=== PATIENT | female | born 1955 | race Caucasian/White ===

== ENCOUNTER 2017-06-08 05:35 | Observation (INO) | payer OTHER ==
[~2017-06-08] VITALS: Ht 160 cm; Wt 111.6 kg
[~2017-06-08 05:35] MED LIST: ADULT LOW DOSE81 MG PO; ADVAIR 100-501 EACH INH; ALDACTONE25 MG PO; ANASTROZOLE1 MG PO; BISOPROLOL-HCT1 EAC2 PO; CENTRUM SILVER1 EAC3 PO; CRANBERRY200 MG PO; EFFER-K 10 MEQ10 MEQ PO; ELIQUIS2.5 MG PO; ESTRACE1 MG PO; FLONASE ALLERG9.9 ML NAS; FOLIC ACID1 MG PO; GLUCOPHAGE1000 MG PO; HUMIRA CRO40 MG/0.8 SUB-Q; HYDROXYCHLOROQ200 MG PO; IBUPROFEN600 MG PO; IRON18 MG PO; LASIX40 MG PO; LIPITOR20 MG PO; MAPAP325 MG PO; METHOTREXATE2.5 MG PO; OMEPRAZOLE20 M1 PO; OXYCODON-ACETA1 EAC2 PO; PLAQUENIL200 MG PO; PROAIR RESPICL90 MCG INH; SINGULAIR10 MG PO; TIAZAC300 MG PO; TIROSINT88 MCG PO; VITAMIN D400 UNI1 PO; ZYRTEC10 MG PO
--- NOTE | 2017-06-08 10:28 | NUR ---
06/08/17 1028 Iliana Valdivia REPORT FROM BRICK SETTER.
--- NOTE | 2017-06-08 13:09 | NUR ---
PT RESTING IN BED HER AND SISTER BY HER SIDE. SHE WAS FRIENDLY, SEEMED COMFORTABLE AND HAD FEW QUESTIONS. DID SEEM THOUGH TO BE WAITING FOR DR TOTH TO COME IN. REQUESTED PRAYER, WILL FOLLOW NEEDED
--- NOTE | 2017-06-08 13:37 | NUR ---
PT REQUESTS TO USE THE BATHROOM. ADVANCED RESEARCH PROGRAMS DIRECTOR ASSISTED. POST OP VITALS TAKEN, VSS. SENSATION INTACT, NO NUMBNESS, TINGLING, OR SWELLING REPORTED. PT BREATHING AND SWALLOWING WELL.
--- NOTE | 2017-06-08 16:34 | NUR ---
LEFT VOICEMAIL FOR DR TOTH RE: ORDER FOR PAIN RELIEF. PT STATES SHE HAS SOME DISCOMFORT, IBUPROFEN 600MG WORKS BEST FOR HER.
--- NOTE | 2017-06-08 18:15 | NUR ---
PT ARRIVED FROM SURGERY THIS MORNING. PT REPORTS NO TINGLING, NUMBNESS, SOB, OR DIFFICULTY SWALLOWING. PT REPORTS DISCOMFORT, REQUESTED ORDER FOR IBUPROFEN. PT HAS HOME CPAP IN USE. PT UP TO VOID WELL. TRACH TRAY IN ROOM.
--- NOTE | 2017-06-08 20:00 | NUR ---
RECEIVED REPORT AT 1900. FOUND PT IN BED AWAKE AND ALERT. PT DENIED PAIN, SOB AND TROUBLE SWALLOWING. PT HAD QUESTIONS ABOUT HER HOME MEDICATIONS AND I TOLD HER I WOULD CALL [facility].
--- NOTE | 2017-06-08 20:41 | OR ---
[facility] [address] [place], [place] [address] Signed DATE OF OPERATION: 06/08/2017 SURGEON: Yris Toth MD PREOPERATIVE DIAGNOSES: 1. Primary hyperparathyroidism, negative sestamibi scan, ultrasound suspicious for left upper pole of the thyroid gland. 2. History of breast carcinoma status post lumpectomy, axillary dissection, radiation therapy. 3. Recent implantation of pacemaker device. POSTOPERATIVE DIAGNOSES: 1. 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 2. Left upper pole thyroid nodule (2 cm) excised. PROCEDURE: 1. Exploration of neck for parathyroid adenoma excision. 2. Excision of portion of left upper lobe thyroid. ANESTHESIA: General endotracheal, Cristina Ponce CRNA. INDICATION: This 62-year-old white woman is a patient of Anh Gaona PA-C and lives in [place], [place]. She underwent treatment by me for right breast cancer including lumpectomy, sentinel lymph node biopsy and so on. She was found incidentally to have hypercalcemia with serum calcium greater than 11.2. A sestamibi scan was performed for localization, but did not show an adenoma. An ultrasound was performed of the neck, which showed a nodule in the posterior aspect of the left upper pole of the thyroid, likely an adenoma measuring 19 mm in maximum dimension. She is admitted at this time to undergo neck exploration in search of parathyroid adenoma as well as other indicated procedures. She understands as does her family the risks of bleeding, infection, failure to identify parathyroid adenoma, missed adenoma, recurrent laryngeal nerve injury, and other unforeseen complications. I understand that she wished to proceed. FINDINGS: She has a very short neck and is very obese. Surprisingly, she has a relatively small thyroid gland itself. There was an intrinsic nodule of the thyroid itself in the left Electronically Signed By: YRIS TOTH MD 06/08/17 2041 PATIENT NAME: ALBERTINA CASTELLANOS OPERATIVE REPORT DATE OF : 55 PHYSICIAN: YRIS TOTH MD REPORT #: [id number] REPORT IS CONFIDENTIAL AND NOT TO BE RELEASED WITHOUT AUTHORIZATION [facility] [address] [place], [place] [address] Signed upper pole, which was separately and distinctly excised. Posterior to the left upper lobe of the thyroid gland was an obvious parathyroid adenoma. This was excised completely and under frozen pathology was confirmed to be 422 mg consistent with parathyroid adenoma. Examination of the left lower pole of the thyroid gland did not show a distinct adenoma or gland that was normal per se, but no further pursuit of 2nd adenoma was undertaken at this time. DESCRIPTION OF PROCEDURE: The patient was brought to the operating room, given a general endotracheal anesthetic. A Davenport catheter was placed as well. The patient is extremely plethoric and obese. position was attempted, arms at the side and gently draped over the abdomen given her large girth. The neck was short and sarmiento and stubby. Neck extension was undertaken as best could be. A natural skin crease was noted to be midway between the angle of the mandible and sternal notch itself. Given her truncated anatomy, it was deemed most appropriate incision after all. After sterile draping and preparation, a transverse incision was made in the skin crease and dissection carried through the skin and dermis sharply and ultimately with electrocautery. Thick neck fat was transected as was the platysmal layer. Superior and inferior skin flaps were developed using blunt and electrocautery dissection. Gelpi retractors were placed in the midline, strap muscles identified and incised along the avascular plane. Elevation of the left strap muscles was undertaken and using sharp dissection, the thyroid was identified. Despite her large body habitus, her thyroid was impressively small. With blunt and sharp dissection, the loose areolar tissue lateral to the thyroid was divided. There appeared to be a nodule in the upper pole of the thyroid gland. This was clearly thyroid tissue and not an adenoma given its anterior position. It was of concern that perhaps the ultrasound that had been performed had identified this nodule rather than an adenoma. Using great care, the thyroid was dissected free and rotated to a medial position and behind the upper pole the thyroid gland was an obvious parathyroid adenoma, which was rather elongated and quite large. This was gently teased from the surrounding soft tissue with sharp dissection and blunt dissection with a suction device. Small clips applied to the vascular pedicle and the lesion was excised and passed for pathology. Photographs were taken. The subsequent frozen pathology confirmed this to be a parathyroid adenoma weighing 422 mg (normal gland 30-50 mg). Irrigation was undertaken and dissection in the lower aspect of the thyroid was undertaken while waiting for the frozen pathology report. No distinct parathyroid gland was identified. The one was considered likely was identified in the posterior aspect of the left lower pole of the thyroid gland. It was not dissected free in anyway. The nodule of the thyroid gland itself was reinspected. It was quite distinct and separate from the twenty-nine palms thyroid gland itself. Superior polar vessels were individually ligated and secured with 4-0 silk ties ultimately allowing for Zoraida clamp to be applied to the thyroid nodule, which measured about 2.5 cm. Its attachment to the left upper Electronically Signed By: YRIS TOTH MD 06/08/17 2041 PATIENT NAME: ALBERTINA CASTELLANOS OPERATIVE REPORT DATE OF : 55 PHYSICIAN: YRIS TOTH MD REPORT #: [id number] REPORT IS CONFIDENTIAL AND NOT TO BE RELEASED WITHOUT AUTHORIZATION [facility] [address] [place], [place] [address] Signed pole thyroid tissue was divided with electrocautery. The raw surface of the thyroid that remained was hemostatic. Irrigation was undertaken. There was no untoward bleeding. Holli hemostatic powder was applied to the raw surface of the left upper pole thyroid gland and somewhat posteriorly in the site of the previous excised parathyroid adenoma, though there was no ongoing bleeding in anyway. By that point, the frozen pathology had confirmed the findings. The thyroid nodule was not sent for frozen pathology at this time as it is remarkably unusual in this environment to have a definitive diagnosis of thyroid pathology. Attention was turned towards closure. The midline strap muscles were reapproximated with interrupted 2-0 Vicryl. The platysmal layer was similarly reapproximated and skin closed with running subcuticular 3-0 Vicryl. Steri-Strips were applied as was a Mepilex silver sponge dressing. The patient was ultimately extubated and transferred to recovery in good condition having suffered no complication. Sponge, needle, and instrument counts reported as correct x3. MD JAYDA Araujo/EMMANUEL /[id number] cc: KEISHA Ortega MD Cynthia Sue Holmes, MD Jeffrey M Lehr, MD Electronically Signed By: YRIS TOTH MD 06/08/17 2041 PATIENT NAME: ALBERTINA CASTELLANOS OPERATIVE REPORT DATE OF : 55 PHYSICIAN: YRIS TOTH MD REPORT #: [id number] REPORT IS CONFIDENTIAL AND NOT TO BE RELEASED WITHOUT AUTHORIZATION
--- NOTE | 2017-06-08 22:00 | NUR ---
I TALKED TO MD TOTH ABOUT HER HOME MEDICATINS. FOR NOW SHE WILL TAKE HER HOME DOSE FOR LASIX. I ALSO CHECKED HER BG SINCE THIS PT HAS DM II. IT WAS 270. I TOLD THIS TO BONI AND HE PUT INSULIN ORDERS IN. PT RECEIVED 5 UNITS OF NOVOLIN INSULIN, V/S ARE WDL, PT PAIN AT THIS TIME IS 2, NO EDEMA NOTED AROUND HER NECK, DENIES SOB AND PROBLEMS SWALLOWING, PT IS TOLERATING REGULAR DIET WELL. DIET WILL BE CHANGED TO ADA WELL. ALL LOBES ARE CLEAR AND NO PERIPHERAL EDEMA WAS NOTED.
--- NOTE | 2017-06-09 00:22 | NUR ---
IV FLUIDS WERE CHANGED. PT IS BACK TO SLEEP NOW.
--- NOTE | 2017-06-09 01:25 | NUR ---
ASSISTED PT TO BATHROOM, PT MISSED HAT IN TOILET. PER PT SHE SAID SHE HAD A LARGE VOID. NO CHANGES IN THIS PT. PT BACK IN BED. SPOT BG CHECK WAS 165.
--- NOTE | 2017-06-09 03:14 | NUR ---
PT IS SLEEPING AT THIS TIME.
--- NOTE | 2017-06-09 04:19 | NUR ---
PT IS SLEEPING AT THIS TIME.
--- NOTE | 2017-06-09 05:09 | NUR ---
OVERALL PT HAD AN UNEVENTFUL NIGHT. V/S ARE WDL. PT HAD MINIMAL PAIN, NO EDEMA AROUND THE NECK WAS NOTED, PT DENIES SOB AND DIFFICULTY SWALLOWING. BG AT 2100 WAS 270 AND MD TOTH WAS NOTIFIED AND INSULIN ORDERS WERE DONE. A SPOT CHECK WAS DONE AT AROUND 0130, BG WAS 165. DIET WAS CHANGED TO ADA. ALL LOBES ARE CLEAR NO PERIPHERAL EDEMA WAS NOTED, PT IS ALERT AND ORIENTED, PT DENIES NUMBNESS, TINGLING AND TWITCHING. URINE OUTPUT IS ADEQUATE. DRESSING ON FRONT OF NECK IS C/D/I. NO NEW ISSUES NOTED SO FAR. PT USED HER HOME C-PAP ALL NIGHT.
--- NOTE | 2017-06-09 07:37 | NUR ---
patient was asleep, family in room, will check back when breakfast comes around.
--- NOTE | 2017-06-09 08:28 | NUR ---
PT FSBS 161. 1 UNIT INSULIN TO BE GIVEN. PT UP TO BATHROOM NOW. TOLERATED BREAKFAST WELL. MEPILEX ON NECK INCISION IN PLACE. C/D/I. WORE CPAP WHILE SLEEPING. FAMILY AT BEDSIDE. REPORTS NO TINGLING, NUMBNESS, MUSCLE SPASMS OR TWITCHING. CALCIUM LEVEL 9.1 TODAY. IVF INFUSING AT 85.
[2017-06-09] MEDS ORDERED: CALCIUM CARBON200 MG PO (12:09)
--- NOTE | 2017-06-09 12:37 | NUR ---
PT HAS VISITORS AT BEDSIDE. EATING LUNCH NOW. NO COMPLAINTS OF PAIN. DISCHARGE ORDER IN CHART. IV REMOVED. CONTINUOUS PULSE OX DISCONTINUED.
== END 2017-06-09 13:15 | disposition home or self-care (01) ==
LOC: DS 05:35 → MS 11:10
PROVIDERS: ADMIT Surgery
PROC: 0GBG0ZZ Excision of Left Thyroid Gland Lobe, Open Approach (ICD-10-PCS; 2017-06-08)
PROC: 0GBM0ZZ Excision of Left Superior Parathyroid Gland, Open Approach (ICD-10-PCS; principal; 2017-06-08 06:45)
DX: D35.1 Benign neoplasm of parathyroid gland (principal); E06.3 Autoimmune thyroiditis; E04.1 Nontoxic single thyroid nodule; E03.9 Hypothyroidism, unspecified; E87.6 Hypokalemia; E21.0 Primary hyperparathyroidism; I10 Essential (primary) hypertension; J45.909 Unspecified asthma, uncomplicated; E11.9 Type 2 diabetes mellitus without complications; E66.01 Morbid (severe) obesity due to excess calories; G47.30 Sleep apnea, unspecified; M06.9 Rheumatoid arthritis, unspecified; Z95.0 Presence of cardiac pacemaker; Z85.3 Personal history of malignant neoplasm of breast; Z68.41 Body mass index [BMI] 40.0-44.9, adult; Z88.1 Allergy status to other antibiotic agents; Z88.5 Allergy status to narcotic agent; Z88.2 Allergy status to sulfonamides; Z88.8 Allergy status to other drugs, medicaments and biological substances; Z79.84 Long term (current) use of oral hypoglycemic drugs; Z79.1 Long term (current) use of non-steroidal anti-inflammatories (NSAID); Z79.02 Long term (current) use of antithrombotics/antiplatelets; Z79.82 Long term (current) use of aspirin; Z79.51 Long term (current) use of inhaled steroids; Z79.899 Other long term (current) drug therapy
CPT/HCPCS: 00300; 36415; 82310; 94640; 94644; 94762; G0378; J0330; J0690; J1100; J2250; J2405; J2704; J3010; J7120

== ENCOUNTER 2020-09-09 09:44 | Day surgery (SDC) | payer MEDICARE, OTHER ==
[~2020-09-09] VITALS: Ht 160 cm; Wt 115.0 kg
[~2020-09-09 09:44] MED LIST changes: +ASPIRIN325 MG PO; +CALCIUM CARBON200 MG PO; +FISH OIL 1,0001 EAC5 PO; +MAGNESIUM400 M1 PO; +PREDNISONE10 M1 PO; +TIROSINT100 MCG PO; -TIROSINT88 MCG PO
--- NOTE | 2020-09-09 11:07 | NUR ---
09/09/20 1107 Yumiko Gallardo 1105-PATIENT ARRIVED TO PACU ON 2L NC AWAKE RR EVEN 2L NC. ABDOMEN ROUND AND SOFT ENCOURAGED TO PASS GAS. IVF INFUSING
--- NOTE | 2020-09-13 15:54 | PATH ---
[facility] [address] [place], [place] [address] Signed SPECIMEN(S): A DESCENDING COLON POLYP SPECIMEN SOURCE: A. DESCENDING COLON POLYP CLINICAL HISTORY: History of polyps. Postop DX: Diverticulosis, polyp x1. MICROSCOPIC DESCRIPTION: Histologic sections of all submitted blocks are examined by light microscopy. These findings, together with the gross examination, support the pathologic diagnosis. FINAL PATHOLOGIC DIAGNOSIS: Colon, descending, polyp, polypectomy: - Tubular adenoma. - Negative for high-grade dysplasia or malignancy. NAL:cml:C2Nr GROSS DESCRIPTION: The specimen, labeled " Alonso Danielle, #1, and designated on the requisition "descending colon polyp," is received in formalin and consists of 1 asher soft tissue fragment(s) that measure 0.4 cm in greatest dimension. The specimen is entirely submitted in cassette (A1). FB (under the direct supervision of a pathologist) The Gross Description was prepared using a voice recognition system. The report was reviewed for accuracy; however, sound-alike word errors, addition and/or deletions may occur. If there is any question about this report, please contact Client Services. PERFORMING LABORATORY: The technical component was performed by [facility], [address] [place] [id number] (Profiling Machine Set Up Operator: Mely James MD; CLIA# [id number]). [facility], [address] [address] (CLIA# [id number]). Diagnostician: Marla Carty MD Pathologist Electronically Signed 09/13/2020 PATIENT NAME: DANIELLE CASTELLANOS PATHOLOGY DATE OF : 55 REPORT #: [id number] PHYSICIAN: CONNOR PATHOLOGY PCP: QUINTON SULTANA PAC REPORT IS CONFIDENTIAL AND NOT TO BE RELEASED WITHOUT AUTHORIZATION [address] [place], [place] [address] Signed Copies: ~ PATIENT NAME: DANIELLE CASTELLANOS PATHOLOGY DATE OF : 55 REPORT #: [id number] PHYSICIAN: CONNOR PATHOLOGY PCP: QUINTON SULTANA PAC REPORT IS CONFIDENTIAL AND NOT TO BE RELEASED WITHOUT AUTHORIZATION
--- NOTE | 2020-09-16 17:33 | OR ---
[facility] [address] [place], [place] [address] Signed DATE OF OPERATION: 09/09/2020 SURGEON: Yris Toth MD PREOPERATIVE DIAGNOSES: 1. History of tubular adenomas x3 in 2017. 2. Multiple other medical issues. POSTOPERATIVE DIAGNOSES: 1. Small polyp, left colon (excised). 2. Diverticulosis in sigmoid and left colon. PROCEDURES: Total colonoscopy to cecum with cold morcellation polypectomy x1. ANESTHESIA: Intravenous sedation, fentanyl 100 mcg and Versed 9 mg total INDICATIONS: This 65-year-old white woman is a patient of ABIMAEL Ortega and well known to me from the past. She has history of polyps excised in 2017, 3 in total, all of them tubular adenomas. She additionally has undergone right breast cancer surgery by me a number of years ago as well as left-sided parathyroid adenoma excision. She has no symptoms currently of bleeding or constipation, but does have diarrhea. She has no family history of colon cancer. She is admitted to undergo surveillance colonoscopy. She understands the risks of bleeding, infection, and perforation. FINDINGS: The prep was excellent. Complete colonoscopy was undertaken to the cecum without question. She had numerous diverticula of sigmoid and left colon. There was a small adenomatous appearing polyp of the left colon, which was excised with cold morcellation technique. There were no other findings of concern. DESCRIPTION OF PROCEDURE: The patient was brought to the endoscopy suite and placed in lateral decubitus position, given intravenous sedation to the point of slurred speech and nystagmus. Digital rectal examination was normal. An Olympus video colonoscope was passed in the rectum and manipulated throughout the colon noting numerous diverticula of the sigmoid and left colon. The scope was Electronically Signed By: YRIS TOTH MD 09/16/20 1733 PATIENT NAME: ALBERTINA CASTELLANOS OPERATIVE REPORT DATE OF : 55 REPORT #: [id number] PHYSICIAN: YRIS TOTH MD PCP: QUINTON GAONA PAC REPORT IS CONFIDENTIAL AND NOT TO BE RELEASED WITHOUT AUTHORIZATION [facility] [address] [place], [place] [address] Signed ultimately advanced to the cecum. The ileocecal valve and appendiceal orifice were normal. The scope was withdrawn from that point and examination throughout showed no sign of abnormality until the distal left colon where a small adenomatous polyp was noted, this was excised with cold morcellation technique. Further withdrawal of scope showed no other abnormality. Retroflexed view of the rectum was normal. The scope was removed. The patient was taken to the recovery room in good condition. CONCLUDING DIAGNOSES: Polyps x1 and diverticulosis. PLAN: Recommend a repeat colonoscopy in 5 years sooner if clinically indicated. She will return to the ongoing care of ABIMAEL Ortega. MD JAYDA Araujo/EMMANUEL /[id number] cc: Quinton Gaona PA-C Copies: QUINTON GAONA PAC ~ Electronically Signed By: YRIS TOTH MD 09/16/20 1733 PATIENT NAME: ALBERTINA CASTELLANOS OPERATIVE REPORT DATE OF : 55 REPORT #: [id number] PHYSICIAN: YRIS TOTH MD PCP: QUINTON GAONA PAC REPORT IS CONFIDENTIAL AND NOT TO BE RELEASED WITHOUT AUTHORIZATION
== END 2020-09-09 11:45 | disposition home or self-care (01) ==
LOC: OPS 09:44 → DS 09:47 → OPS 11:00 → DS 14:00
PROVIDERS: ATTEND Surgery
PROC: 0DBG8ZX Excision of Left Large Intestine, Via Natural or Artificial Opening Endoscopic, Diagnostic (ICD-10-PCS; principal; 2020-09-09 11:00)
DX: D12.4 Benign neoplasm of descending colon (principal); K57.30 Diverticulosis of large intestine without perforation or abscess without bleeding; C50.411 Malignant neoplasm of upper-outer quadrant of right female breast; D35.1 Benign neoplasm of parathyroid gland; J45.909 Unspecified asthma, uncomplicated; E11.9 Type 2 diabetes mellitus without complications; E03.9 Hypothyroidism, unspecified; I10 Essential (primary) hypertension; G47.30 Sleep apnea, unspecified; D64.9 Anemia, unspecified; E78.5 Hyperlipidemia, unspecified; E66.9 Obesity, unspecified; Z79.01 Long term (current) use of anticoagulants; Z79.1 Long term (current) use of non-steroidal anti-inflammatories (NSAID); Z79.02 Long term (current) use of antithrombotics/antiplatelets; Z79.811 Long term (current) use of aromatase inhibitors; Z79.899 Other long term (current) drug therapy; Z79.84 Long term (current) use of oral hypoglycemic drugs; Z79.891 Long term (current) use of opiate analgesic; Z79.51 Long term (current) use of inhaled steroids; Z95.0 Presence of cardiac pacemaker; Z88.6 Allergy status to analgesic agent; Z88.1 Allergy status to other antibiotic agents; Z88.2 Allergy status to sulfonamides; Z88.8 Allergy status to other drugs, medicaments and biological substances; Z90.711 Acquired absence of uterus with remaining cervical stump; Z90.11 Acquired absence of right breast and nipple; Z68.42 Body mass index [BMI] 45.0-49.9, adult; Z92.3 Personal history of irradiation; Z86.010 Personal history of colon polyps
CPT/HCPCS: 88305; 99153; G0500; J2250; J3010; J7121

== ENCOUNTER 2023-12-04 11:36 | Day surgery (SDC) | payer MEDICARE, OTHER ==
[~2023-12-04] VITALS: Ht 160 cm; Wt 114.1 kg
[~2023-12-04 11:36] MED LIST changes: +ESTRADIOL42.5 GM VAGINAL; +IBLOOD GLUCOSE TEST STRIP 1 EA TEST VI PRN; +LACTATED RINGER'S 1,000 ML IV SCH; +LIDOCAINE HCL 1% 5 ML SDV INJ ONE; +MIDAZOLAM HCL 5 MG/5 ML VIAL IV PRN; +OZEMPIC1 MG/0.71 SUB-Q; +POTASSIUM CHLO10 MEQ PO; +VENTOLIN HFA18 GM INH; +fentaNYL citrate 100 MCG/2 ML VIAL IV PRN
[2023-12-04 12:26] VITALS: BP 131/42
[2023-12-04] MEDS ORDERED: SIMPONI AR50 MG/4 ML IV (12:31)
[2023-12-04] MEDS ORDERED: LIPITOR40 MG PO (12:32)
[2023-12-04] MEDS ORDERED: LOW DOSE ASPIRI81 MG PO (12:32)
[2023-12-04] MEDS ORDERED: VITAMIN D350 MCG PO (12:33)
[2023-12-04] MEDS ORDERED: MAGNESIUM100 MG PO (12:38)
[2023-12-04] MEDS ORDERED: CEPHALEXIN250 M1 PO (12:57)
[2023-12-04] MEDS ORDERED: MIDAZOLAM HCL 5 MG/5 ML VIAL ONE ×2 (13:13→14:04)
[2023-12-04] MEDS ORDERED: fentaNYL citrate 100 MCG/2 ML VIAL ONE (13:13)
--- NOTE | 2023-12-04 14:32 | NUR ---
12/04/23 1432 Yumiko Gallardo 1426-PATIENT ARRIVED TO PACU ON 2L NC RR EVEN. PATIENT AWAKE ORIENTED TO PACU ABDOMEN ROUND AND SOFT ENCOURAGED TO PASS GAS. IVF INFUSING. BP CUFF READJUSTED ON ARM. PATIENT DOZES BACK TO SLEEP.
[2023-12-04 15:04] VITALS: BP 122/50
--- NOTE | 2023-12-05 12:22 | OR ---
[facility] [address] [place], [place] [address] Signed DATE OF OPERATION: 12/04/2023 SURGEON: Yris Toth MD PREOPERATIVE DIAGNOSIS: History of tubular adenoma of sigmoid in 2020. POSTOPERATIVE DIAGNOSES: 1. Extensive sigmoid and left-sided diverticulosis. 2. Polyps x2 (sigmoid and rectosigmoid). PROCEDURE: Total colonoscopy to the cecum with cold snare polypectomy x1 and cold morcellation polypectomy x1. ANESTHESIA: Intravenous sedation; fentanyl 100 mcg and Versed 8 mg. INDICATION: This 68-year-old white woman is a patient of ABIMAEL Mazariegos and Dr. Gildardo Roblero. She underwent colonoscopy by me in 2020 at which time she was found to have a tubular adenoma of the sigmoid. She additionally has extensive sigmoid diverticulosis. She is currently symptom free, but is here for surveillance colonoscopy. She understands the risk of bleeding, infection, and perforation. FINDINGS: The prep was good. Complete colonoscopy was undertaken of the cecum with full intubation of the cecum. There were extensive diverticula of the sigmoid and left colon. There were two polyps, one in the rectosigmoid, the other in the sigmoid, both excised completely, one with cold snare technique and the other with cold morcellation technique. PROCEDURE IN DETAIL: The patient was brought to the endoscopy suite and placed in the lateral decubitus position, given intravenous sedation to the point of slurred speech and nystagmus. Digital rectal examination was normal. An Olympus video colonoscope was passed in the rectum and manipulated into the sigmoid where numerous diverticula were seen. The scope was advanced ultimately to the cecum. The ileocecal valve and appendiceal orifice were normal. Full intubation of the cecum Electronically Signed By: YRIS TOTH MD 12/05/23 1222 PATIENT NAME: ALBERTINA CASTELLANOS OPERATIVE REPORT DATE OF : 55 REPORT #: [id number] PHYSICIAN: YRIS TOTH MD PCP: MIA CHAN REPORT IS CONFIDENTIAL AND NOT TO BE RELEASED WITHOUT AUTHORIZATION [facility] [address] [place], [place] [address] Signed was noted. The scope was then withdrawn and careful inspection upon withdrawal of the scope showed no sign of abnormality other than diverticulosis until the sigmoid where a sessile polyp was noted, this was excised with cold snare technique. Further withdrawal showed another polyp in the rectosigmoid, which was excised with cold morcellation technique. Retroflexed view was otherwise normal. Scope was removed and the patient was taken to the recovery room in good condition. CONCLUDING DIAGNOSIS: Polyps x2 in sigmoid and left-sided diverticulosis. PLAN: Recommend repeat colonoscopy in three years, sooner if clinically indicated. She will return to the ongoing care of Dr. Gildardo Roblero and ABIMAEL Mazariegos. MD JAYDA Araujo/EMMANUEL /[id number] cc: MD Mia Chiang, ROUGE MILLER. Copies: GILDARDO ROBLERO MD ~ Electronically Signed By: YRIS TOTH MD 12/05/23 1222 PATIENT NAME: ALBERTINA CASTELLANOS OPERATIVE REPORT DATE OF : 55 REPORT #: [id number] PHYSICIAN: YRIS TOTH MD PCP: MIA CHAN REPORT IS CONFIDENTIAL AND NOT TO BE RELEASED WITHOUT AUTHORIZATION
--- NOTE | 2023-12-11 11:00 | PATH ---
[facility] [facility] [address] [place], [place] [address] Signed SPECIMEN(S): A RECTAL POLYP SPECIMEN(S): B SIGMOID POLYP SPECIMEN SOURCE: A. RECTAL POLYP B. SIGMOID POLYP CLINICAL HISTORY: History colon polyps, polyp x 2/diverticulosis FINAL PATHOLOGIC DIAGNOSIS: A. Rectal polyp, biopsies: - Fragments of hyperplastic polyp. B. Sigmoid polyp, biopsies: - Fragments of inflamed granulation tissue, negative for dysplasia. AMB MICROSCOPIC EXAMINATION: Histologic sections of all submitted blocks are examined by light microscopy. These findings, together with the gross examination, support the pathologic diagnosis. GROSS DESCRIPTION: A. The specimen, labeled and designated "Navin, B, 1., " and designated on the requisition "Rectum polypectomy," is received in formalin and consists of three asher soft tissue fragments that measure 0.2-0.5 cm in greatest dimension. The specimen is entirely submitted in (A1). B. The specimen, labeled and designated "Navin, B, 2." and designated on the requisition "sigmoid polypectomy," is received in formalin and consists of two asher soft tissue fragments that measure 0.4 and 0.5 cm in greatest dimension. The specimen is entirely submitted in (B1). FB (under the direct supervision of a pathologist) The Gross Description was prepared using a voice recognition system. The report was reviewed for accuracy; however, sound-alike word errors, addition and/or deletions may occur. If there is any question about this report, please contact Client Services. ADDITIONAL NOTES: Immunohistochemical and/or in situ hybridization studies if performed in this case included appropriate positive controls that reacted as expected. This test was developed and its performance PATIENT NAME: ALBERTINA CASTELLANOS PATHOLOGY DATE OF : 55 REPORT #: [id number] PHYSICIAN: CONNOR KING PCP: MIA CHAN REPORT IS CONFIDENTIAL AND NOT TO BE RELEASED WITHOUT AUTHORIZATION [facility] [address] [place], [place] [address] Signed characteristics determined by [facility]. It has not been cleared or approved by the U.S. Food and Drug Administration. The FDA has determined that such clearance or approval is not necessary. This test is used for clinical purposes. It should not be regarded as investigational or for research. [facility] is certified under the Clinical Laboratory Improvement Amendments of 1988 (CLIA) as qualified to perform high complexity clinical laboratory testing. PERFORMING LABORATORY: Technical component was performed by [facility], [address] [place] [address] (CLIA# [id number]). Professional interpretation was performed by [facility] - [address] [id number] Diagnostician: Mely James MD Pathologist Electronically Signed 12/11/2023 Copies: ~ PATIENT NAME: ALBERTINA CASTELLANOS PATHOLOGY DATE OF : 55 REPORT #: [id number] PHYSICIAN: CONNOR KING PCP: MIA CHAN REPORT IS CONFIDENTIAL AND NOT TO BE RELEASED WITHOUT AUTHORIZATION
== END 2023-12-04 15:20 | disposition home or self-care (01) ==
LOC: DS 11:36 → OPS 11:36 → DS 13:00 → OPS 15:20
PROVIDERS: ATTEND Surgery
PROC: 0DBN8ZX Excision of Sigmoid Colon, Via Natural or Artificial Opening Endoscopic, Diagnostic (ICD-10-PCS; principal; 2023-12-04 13:00)
DX: K62.1 Rectal polyp (principal); K52.9 Noninfective gastroenteritis and colitis, unspecified; K57.30 Diverticulosis of large intestine without perforation or abscess without bleeding; I10 Essential (primary) hypertension; J45.909 Unspecified asthma, uncomplicated; G47.30 Sleep apnea, unspecified; E11.9 Type 2 diabetes mellitus without complications; Z95.0 Presence of cardiac pacemaker; Z88.8 Allergy status to other drugs, medicaments and biological substances; Z88.1 Allergy status to other antibiotic agents; Z88.5 Allergy status to narcotic agent; Z88.2 Allergy status to sulfonamides; Z79.899 Other long term (current) drug therapy; Z79.890 Hormone replacement therapy; Z79.84 Long term (current) use of oral hypoglycemic drugs
CPT/HCPCS: 88305; 99153; G0500; J2250; J3010; J7121